=== PATIENT | female | born 1980 | race Two or more races ===

== ENCOUNTER 2025-04-22 02:00 | Emergency (ER) | payer OTHER, MEDICAID ==
[~2025-04-22] VITALS: Ht 162.6 cm; Wt 81.6 kg
[2025-04-22 02:48] LABS: PLATELET COUNT (AUTO) 258 K/uL (150-450); RED BLOOD CELL COUNT(AUTO) 4.21 MIL/uL (4.0-5.2); RED CELL DISTRIBUTION WIDTH 13.4 % (11.5-15.0); WHITE BLOOD COUNT (AUTO) 7.3 K/uL (4.3-11.0)
[2025-04-22 02:53] LABS: CALCIUM, SERUM 8.6 mg/dL (8.5-10.1); CREATININE 0.8 mg/dL (0.6-1.3); SODIUM SERUM 133 mmol/L (136-145); UREA NITROGEN, BLOOD 10 mg/dL (7-18)
[2025-04-22 03:00] LABS: ASPARTATE AMINOTRANSFERASE 26 U/L (15-37); TOTAL PROTEIN, SERUM 7.2 g/dL (6.4-8.2)
[2025-04-22] MEDS: IV LR 1000 ML 1,000 ML IV ONE (03:08)
[2025-04-22] MEDS: ASPIRIN 81 MG TAB.CHEW PO ONE (03:13)
[2025-04-22 03:43] LABS: INR 0.96 (0.91-1.10)
[2025-04-22 03:48] LABS: ALCOHOL, BLOOD 90.0 mg/dL (0-10); NT-PRO BNP 53.0 pg/mL (0-125)
[2025-04-22 04:00] LABS: APPEARANCE,URINE CLEAR (CLEAR); BLOOD, URINE NEGATIVE Ery/uL (NEGATIVE); LEUKOCYTE ESTERASE ,URINE 1+ (NEGATIVE); NITRITE, URINE POSITIVE (NEGATIVE); UGLUCOSE 3+ mg/dL (NEGATIVE)
[2025-04-22 04:01] LABS: BARBITURATE, URINE NEGATIVE (NEGATIVE); BENZODIAZEPINE, URINE NEGATIVE (NEGATIVE); CANNABINOID, URINE NEGATIVE (NEGATIVE); COCCAINE, URINE NEGATIVE (NEGATIVE); OPIATE, URINE NEGATIVE (NEGATIVE)
[2025-04-22 04:02] LABS: AMPHETAMINE, URINE POSITIVE (NEGATIVE); PREGNANCY TEST URINE QUAL NEGATIVE (NEGATIVE)
[2025-04-22 04:22] LABS: ADD URINE CULTURE YES
[2025-04-22] MEDS ORDERED: CEFTRIAXONE 1GM BAG (ER ONLY) 50 ML IV ONE (05:19)
[2025-04-22] MEDS: POTASSIUM CHLORIDE 20 MEQ TAB.PRT.SR PO ONE (05:27)
[2025-04-22] MEDS: CEFTRIAXONE 1GM BAG (ER ONLY) 1 GM/50 ML PIGGYBACK IV ONE (05:27)
[2025-04-22 11:31] VITALS: BP 138/90; TEMP 99; O2SAT 98
== END 2025-04-22 11:32 | disposition short-term general hospital (02) ==
LOC: ER 02:02
DX: N39.0 Urinary tract infection, site not specified (principal); E11.65 Type 2 diabetes mellitus with hyperglycemia; F15.10 Other stimulant abuse, uncomplicated; I10 Essential (primary) hypertension; R06.02 Shortness of breath; Z65.3 Problems related to other legal circumstances; Z79.899 Other long term (current) drug therapy; Z20.822 Contact with and (suspected) exposure to COVID-19
CPT/HCPCS: 99291; 96365; 96361; 93005 ×2; 71045; 85025; 80048; 87077; 87086; 80076; 83735; 84703; 85610; 85730; 87186; 81001; 36415; 84484 ×2; 83880; 82962; 80320; 80307; J7120 ×2; J0696; G0480